=== PATIENT | male | born 1940 | race Caucasian/White ===

== ENCOUNTER 2018-08-31 06:20 | Day surgery (SDC) | payer MEDICARE, OTHER ==
[2018-08-31] MEDS: BUPIVACAINE 0.5%/EPI (SDV) 30 ML INJ (07:36)
[2018-08-31] MEDS: LIDOCAINE 1% (MPF) 30 ML INJ (07:36)
[2018-08-31] MEDS ORDERED: SEVOFLURANE 15 MIN (08:00)
[2018-08-31] MEDS ORDERED: CEFAZOLIN 1 GM INJ (08:00)
[2018-08-31] MEDS ORDERED: SOD CHLORIDE 0.9% 1,000 ML IV (08:00)
[2018-08-31] MEDS ORDERED: LACTATED RINGER'S 1,000 ML IV (08:00)
[2018-08-31] MEDS ORDERED: LIDOCAINE 2% (SDV) 5 ML INJ (08:22)
[2018-08-31] MEDS ORDERED: PROPOFOL 20 ML (08:22)
[2018-08-31] MEDS ORDERED: FENTAnyl 50 MCG/ML VIAL (08:22)
[2018-08-31] MEDS ORDERED: PHENYLephrine (100 MCG/ML) 10ML SYG (08:50)
[2018-08-31] MEDS ORDERED: ONDANSETRON 4 MG INJ (08:50)
[2018-08-31] MEDS ORDERED: EPHEDrine 25 MG/5 ML SYG (08:50)
[2018-08-31] MEDS ORDERED: ONDANSETRON 4 MG INJ IV (09:30)
== END 2018-08-31 11:49 | disposition home or self-care (01) ==
LOC: SDS 06:20
DX: L72.11 Pilar cyst (principal); L72.0 Epidermal cyst; E11.9 Type 2 diabetes mellitus without complications; I10 Essential (primary) hypertension; I69.951 Hemiplegia and hemiparesis following unspecified cerebrovascular disease affecting right dominant side
CPT/HCPCS: 11406; 82962; 88305